=== PATIENT | female | born 1995 | race Caucasian/White ===

== ENCOUNTER 2018-01-19 14:21 | Inpatient (IN) ==
[2018-01-19] MEDS ORDERED: ONDANSETRON 4 MG/2 ML VIAL IV PRN (14:32)
[2018-01-19] MEDS ORDERED: BUTORPHANOL 2 MG/ML VIAL IV PRN (14:32)
[2018-01-19 14:55] LABS: Basophils % 0.4 % (0.0-0.8); Eosinophils # 0.1 10*3/uL (0.0-0.87); Eosinophils % 0.9 % (0.00-10.9); Hematocrit 36.9 VOL% (35.7-47.0); Immature Granulocytes % 0.3 %; Immature Granulocytes Absolute 0.03 #; Lymphocytes # 1.3 10*3/uL (1.4-4.0); Lymphocytes % 12.9 % (21.3-54.2); Mean Corpuscular HGB Conc 32.5 GM/DL (32-36); Mean Corpuscular Hemoglobin 28 PG (27-34); Mean Corpuscular Volume 84.6 FL (87-102); Mean Platelet Volume 13.1 FL (9.6-12.0); Monocytes # 0.7 10*3/uL (0.11-0.8); Monocytes % 7.2 % (1.7-12.7); Neutrophils % 78.3 % (38.7-73.9); Red Blood Count 4.36 MC/CUMM (3.8-5.5); Red Cell Distribution Width 13.4 % (9.3-17.3); White Blood Count 10.2 T/CUMM (4-12)
[2018-01-19 15:11] LABS: Platelet Count 222 T/CUMM (130-400)
[2018-01-19] MEDS ORDERED: OXYTOCIN/LR 20 UNIT/1,000 ML BAG IV ONE (15:25)
[2018-01-19] MEDS ORDERED: LACTATED RINGERS 1,000 ML IV ONE (15:25)
[2018-01-19 15:27] LABS: Alanine Aminotransferase 24 U/L (13-56); Albumin 2.6 G/DL (3.4-5.0); Alkaline Phosphatase 411 U/L (45-117); Aspartate Amino Transferase 17 U/L (0-37); Bilirubin,Total < 0.39 MG/DL (0.2-1.0); Blood Urea Nitrogen 8 MG/DL (7-18); Glucose 83 MG/DL (74-106); Osmolality,Calculated 271.7 MOS/KG (273-304); Potassium 4.1 MMOL/L (3.5-5.1); Sodium 138 MMOL/L (136-145); Total Protein 7.5 G/DL (6.4-8.3); Uric Acid 3.6 MG/DL (2.6-6.0)
[2018-01-19 15:39] LABS: INR 0.9; PT Patient Result 9.4 SECS; Partial Thromboplastin Time 27.7 SECS (0-40)
[2018-01-19] MEDS ORDERED: DINOPROSTONE 10 MG VAG.INSERT VAG ONE (16:00)
[2018-01-20] MEDS: LACTATED RINGERS 1,000 ML IV SCH ×4 (04:50→18:57)
[2018-01-20] MEDS ORDERED: OXYTOCIN/LR 20 UNIT/1,000 ML BAG IV SCH ×2 (05:00→06:00)
[2018-01-20] MEDS ORDERED: PROMETHAZINE 25 MG/1 ML VIAL IM ONE (08:03)
[2018-01-20] MEDS ORDERED: CITRIC ACID/SODIUM CITRATE 30 ML UDCUP PO ONE (08:03)
[2018-01-20] MEDS ORDERED: hydrOXYzine HCL 25 MG/1 ML VIAL IM PRN (08:03)
[2018-01-20] MEDS ORDERED: ePHEDrine 50 MG/ML AMP IV PRN (08:03)
[2018-01-20] MEDS ORDERED: diphenhydrAMINE 50 MG/1 ML VIAL IV PRN ×2 (08:03)
[2018-01-20] MEDS ORDERED: NALOXONE 0.4 MG/ML VIAL IV PRN (08:03)
[2018-01-20] MEDS ORDERED: FAMOTIDINE 20 MG/2 ML VIAL IV ONE (08:03)
[2018-01-20] MEDS ORDERED: fentaNYL 2 MCG/ROPIV 0.2% EPID 100 ML EPIDURAL SCH (08:30)
[2018-01-20 13:51] LABS: Apearance,Urine Slightly Hazy (Clear); Bilirubin,Urine Negative (Negative); Blood, Urine Negative (Negative); Glucose,Urine (UA) Negative (Negative); Ketones,Urine Negative (Negative); Mucus,Urine Occasional /LPF (Occasional); Nitrite,Urine Negative (Negative); Protein,Urine Negative; RBC,Urine 1 /HPF (0-4); Squamous Epithelial Cell,Urine Occasional /HPF (0-10); Urine Color Yellow (Yellow); Urine Specific Gravity 1.023 (1.001-1.035); Urine Urobilinogen < 2.0 EU/DL (0.2-1.0); WBC,Urine 1 /HPF (0-6)
[2018-01-20] MEDS ORDERED: LIDOCAINE 1% 50 ML VIAL ONE (16:33)
[2018-01-20] MEDS ORDERED: CARBOPROST TROMETHAMINE 250 MCG/ML AMP IM ONE (16:34)
[2018-01-20] MEDS ORDERED: METHYLERGONOVINE 0.2 MG/1 ML AMP ONE (16:34)
[2018-01-20] MEDS ORDERED: miSOPROStol 200 MCG TABLET ONE (16:34)
[2018-01-20] MEDS ORDERED: OXYTOCIN 10 UNIT/ML VIAL ONE (17:53)
[2018-01-20] MEDS ORDERED: OXYTOCIN 10 UNIT/ML VIAL IV ONE (18:30)
[2018-01-20] MEDS ORDERED: MEASLES/MUMPS/RUBELLA VACCINE 0.5 ML VIAL SUBCUT ONE (22:29)
[2018-01-20] MEDS ORDERED: RHO(D) IMMUNE GLOBULIN 300 MCG SYRINGE IM ONE (22:29)
[2018-01-20] MEDS ORDERED: WITCH HAZEL PADS 100/JAR TOP PRN (22:29)
[2018-01-20] MEDS ORDERED: HYDROCORTISONE 2.5% RECTAL CREAM 30 GM TUBE TOP PRN (22:29)
[2018-01-20] MEDS ORDERED: BISACODYL 10 MG SUPP RECTAL PRN (22:29)
[2018-01-20] MEDS ORDERED: LANOLIN 50% CREAM 0.3 OZ TUBE TOP PRN (22:29)
[2018-01-20] MEDS ORDERED: BENZOCAINE 20%/MENTHOL 0.5% SPRAY 56 GM CAN TOP PRN (22:29)
[2018-01-20] MEDS ORDERED: ACETAMINOPHEN 325 MG TABLET PO SCH (22:29)
[2018-01-20] MEDS ORDERED: DIPH/TET/ACEL PERT BOOSTER VACCINE 0.5 ML VIAL IM ONE (22:29)
[2018-01-21] MEDS: DOCUSATE SODIUM 100 MG CAPSULE PO SCH ×3 (00:14→21:44)
[2018-01-21] MEDS: KETOROLAC 30 MG/1 ML VIAL IV SCH ×3 (00:15→11:47)
[2018-01-21] MEDS: ACETAMINOPHEN 500 MG TABLET PO SCH ×4 (04:20→21:44)
[2018-01-21 06:02] LABS: Basophils # 0.1 10*3/uL (0.0-0.2); Basophils % 0.4 % (0.0-0.8); Eosinophils # 0.1 10*3/uL (0.0-0.87); Eosinophils % 0.5 % (0.00-10.9); Hematocrit 29.5 VOL% (35.7-47.0); Hemoglobin 9.7 GM/DL (12.0-16.0); Immature Granulocytes % 0.5 %; Immature Granulocytes Absolute 0.07 #; Lymphocytes # 1.8 10*3/uL (1.4-4.0); Lymphocytes % 12.6 % (21.3-54.2); Mean Corpuscular HGB Conc 32.9 GM/DL (32-36); Mean Corpuscular Hemoglobin 28 PG (27-34); Mean Platelet Volume 12.8 FL (9.6-12.0); Monocytes % 6.8 % (1.7-12.7); Neutrophils # 11.2 10*3/uL (1.4-7.4); Neutrophils % 79.2 % (38.7-73.9); Platelet Count 148 T/CUMM (130-400); Red Blood Count 3.47 MC/CUMM (3.8-5.5); Red Cell Distribution Width 13.4 % (9.3-17.3); White Blood Count 14.1 T/CUMM (4-12)
[2018-01-21] MEDS: IBUPROFEN 800 MG TABLET PO SCH (18:06)
[2018-01-22] MEDS: IBUPROFEN 800 MG TABLET PO SCH ×2 (01:56→10:45)
[2018-01-22] MEDS: ACETAMINOPHEN 500 MG TABLET PO SCH ×2 (04:20→10:45)
[2018-01-22 09:17] VITALS: BP 118/64
[2018-01-22] MEDS: DOCUSATE SODIUM 100 MG CAPSULE PO SCH (09:50)
[2018-01-22] MEDS ORDERED: INFLUENZA VIRUS VACCINE 0.5 ML SYRINGE IM ONE (10:21)
== END 2018-01-22 11:45 | disposition home or self-care (01) | DRG 560 ==
LOC: N.LDOUT 14:21 → N.LD 14:22 → N.OB 01-20 21:50
PROVIDERS: ADMIT Obstetrics & Gynecology; ATTEND Obstetrics & Gynecology